=== PATIENT | female | born 1990 | race Caucasian/White ===

== ENCOUNTER 2017-08-08 08:54 | Observation (INO) | payer OTHER ==
[~2017-08-08] VITALS: Ht 167.6 cm; Wt 92.8 kg
[~2017-08-08 08:54] MED LIST: ACETAMINOPHEN 325 MG TAB PO PRN; ONDANSETRON HCL 4 MG/2 ML VIAL IVP PRN; RESP: ALBUTEROL 2.5 MG/IPRATROPIUM 0.5 MG NEB (PRN) NEB; SODIUM CHLORIDE 0.9% FLUSH 10 ML FLUSH IV FLUSH PRN
[2017-08-08 09:00] VITALS: BP 134/70; PULSE 122; RESP 18; TEMP 97.7; O2SAT 95
[2017-08-08] MEDS: SODIUM CHLORIDE 0.9% FLUSH 10 ML FLUSH IV FLUSH SCH ×2 (09:30→22:04)
[2017-08-08] MEDS: RESP: ALBUTEROL 2.5 MG/IPRATROPIUM 0.5 MG NEB (SCH) NEB ×2 (10:02→11:56)
[2017-08-08] MEDS ORDERED: predniSONE 50 MG TAB PO ONE (11:00)
[2017-08-08 12:00] VITALS: BP 135/71; PULSE 136; RESP 20; TEMP 96.9; O2SAT 94
[2017-08-08] MEDS ORDERED: SODIUM CHLOR 0.9% 1000 ML INJ 1,000 ML IV ONE (13:45)
[2017-08-08] MEDS ORDERED: LEVALBUTEROL 0.63 MG NEB PRN (14:30)
[2017-08-08] MEDS ORDERED: LORATADINE 10 MG TAB PO ONE (15:00)
[2017-08-08] MEDS ORDERED: RESP: IPRATROPIUM 0.5 MG/2.5 ML NEB NEB PRN (15:00)
--- NOTE | 2017-08-08 15:52 | HHI.HP ---
[facility] Primary Care Physician No Primary Care Physician Admission Diagnosis Acute exacerbation of asthma/COPD Diagnoses: (1) Acute respiratory insufficiency Diagnosis: Principal (2) Shortness of breath Diagnosis: Principal (3) Wheeze Diagnosis: Principal (4) Sinus tachycardia Diagnosis: Principal Chief Complaint: Shortness of breath, cough, wheeze Travel History International Travel<30 Days: No Contact w/Intl Traveler <30 Da: No History of Present Illness Written by David Rubio, acting as scribe for Dr. Richardson on 08/08/17 at 15 :37. 26-year-old female with known history of chronic tobacco use who presented to the hospital because of cough, congestion, physical therapy breathing, wheezing, chest discomfort. Patient states that her symptoms started on Friday when she started with a sore throat, sinus congestion. Then on she started developing a dry nonproductive cough, had difficulty breathing and increased wheezing, chest pain. She tried to sleep but could not so she went to the emergency department for evaluation. Patient indicates that she has been using Sudafed, Mucinex, inhaler and nebulizer at bedtime without any improvement. The patient denies any fever, chills, nausea, vomiting, diaphoresis. She did have chest discomfort mainly in the mid sternum which is palpable on palpation. Worsening when she takes a deep breath. Patient states that she has never been diagnosed with any lung disease to include asthma or COPD. She has had treatment in the past for asthma but she states that she had never been officially diagnosed. She has been using a nebulizer at bedtime for the last 2 years. She is currently a smoker, and she she does have cats. Patient had workup done in the emergency department and found to have significant sinus tachycardia, significant wheezing without improvement after nebulizer treatment and steroids. Patient was recommended observation for further management Review of Systems Ears, nose, mouth, throat: COMPLAINS OF: Throat pain, Running Nose Respiratory: COMPLAINS OF: Cough, Shortness of breath Cardiovascular: COMPLAINS OF: Chest pain Except as stated in HPI: all other systems reviewed are Neg Past Family Social History Past Medical History Chronic tobacco use Past Surgical History No previous surgeries Reported Medications Reported Meds & Active Scripts Active No Active Prescriptions or Reported Medications Allergies: Coded Allergies: No Known Allergies (Unverified , 08/08/17) Family History Reviewed and significant for mother with asthma and COPD, father's history is unknown Social History Patient continues to smoke a pack a cigarettes for the last 6 years. She drinks alcohol occasionally. Denies any illicit drugs, however drug screen was positive for cannabinoids Physical Exam Vital Signs Vital Signs Date Time Temp Pulse Resp B/P (MAP) Pulse Ox O2 Delivery O2 Flow Rate FiO2 08/08/17 12:00 96.9 136 20 135/71 (92) 94 08/08/17 09:00 97.7 122 18 134/70 (91) 95 Physical Exam GENERAL: Well-developed, well-nourished, in no acute distress. alert and orientated HEENT: Head is normocephalic without any lesions or masses noted. Facial features are symmetric. Eyes: Pupils equal round reactive to light. Extraocular muscles are intact. Conjunctivae were clear. Oropharyngeal: Pharynx without any erythema edema. Tongue is midline without deviation. Buccal mucosa is moist without any masses or lesions NECK: Supple without any masses. Trachea midline no deviation. No JVD, no bruits are appreciated CARDIAC: Regular rhythm, regular rate. S1/S2 are heard. No murmurs gallops or rubs. LUNGS: Significant bilateral wheeze noted. No, rhonchi or rales. No use of accessory muscles on inspiration or expiration. ABDOMEN: Soft, nontender. Nondistended. Bowel sounds heard in all 4 quadrants. No organomegaly or masses. Negative rebound, negative guarding EXTREMITIES: No edema, pulses are equal bilaterally. No cyanosis or clubbing NEUROLOGY: Mood and affect appear appropriate. Cranial nerves II through XII grossly intact. Muscle strength 5/5 in upper and lower extremities bilaterally. Deep tendon reflexes are 2+ in upper and lower extremities bilaterally. Laboratory Laboratory Tests Test 08/08/17 11:50 Urine Opiates Screen NEG Urine Barbiturates Screen NEG Urine Amphetamines Screen NEG Urine Benzodiazepines Screen NEG Urine Cocaine Screen NEG Urine Cannabinoids Screen POS Caprini VTE Risk Assessment Caprini VTE Risk Assessment: No/Low Risk (score <= 1) Caprini Risk Assessment Model Point Value = 1 Point Value = 2 Point Value = 3 Point Value = 5 Age 41-60 Minor surgery BMI > 25 kg/m2 Swollen legs Varicose veins or History of unexplained or recurrent spontaneous Oral contraceptives or hormone replacement Sepsis (< 1 month) Serious lung disease, including pneumonia (< 1 month) Abnormal pulmonary function Acute myocardial infarction Congestive heart failure (< 1 month) History of inflammatory bowel disease Medical patient at bed rest Age 61-74 Arthroscopic surgery Major open surgery (> 45 min) Laparoscopic surgery (> 45 min) Malignancy Confined to bed (> 72 hours) Immobilizing plaster cast Central venous access Age >= 75 History of VTE Family history of VTE Factor V Leiden Prothrombin [id number] Lupus anticoagulant Anticardiolipin antibodies Elevated serum homocysteine Heparin-induced thrombocytopenia Other congenital or acquired thrombophilia Stroke (< 1 month) Elective arthroplasty Hip, pelvis, or leg fracture Acute spinal cord injury (< 1 month) Prophylaxis Regimen Total Risk Factor Score Risk Level Prophylaxis Regimen 0-1 Low Early ambulation 2 Moderate Order ONE of the following: *Sequential Compression Device (SCD) *Heparin 5000 units SQ BID 3-4 Higher Order ONE of the following medications: *Heparin 5000 units SQ TID *Enoxaparin/Lovenox 40 mg SQ daily (WT < 150 kg, CrCl > 30 mL/min) *Enoxaparin/Lovenox 30 mg SQ daily (WT < 150 kg, CrCl > 10-29 mL/min) *Enoxaparin/Lovenox 30 mg SQ BID (WT < 150 kg, CrCl > 30 mL/min) AND/OR *Sequential Compression Device (SCD) 5 or more Highest Order ONE of the following medications: *Heparin 5000 units SQ TID (Preferred with Epidurals) *Enoxaparin/Lovenox 40 mg SQ daily (WT < 150 kg, CrCl > 30 mL/min) *Enoxaparin/Lovenox 30 mg SQ daily (WT < 150 kg, CrCl > 10-29 mL/min) *Enoxaparin/Lovenox 30 mg SQ BID (WT < 150 kg, CrCl > 30 mL/min) AND *Sequential Compression Device (SCD) Assessment and Plan Assessment and Plan //Respiratory insufficiency secondary to possible acute exacerbation of asthma/ chronic obstructive pulmonary disease - Continue O2 supplementation maintain O2 sats greater than 92% - Continue prednisone - Continue Zithromax - Start Xopenex every 6 hours while awake and every 2 hours as needed due to significant sinus tachycardia - Ipratropium bromide every 6 hours while awake and every 2 hours as needed - Start Singulair 10 mg daily - Start Claritin 10 mg daily - Patient will require pulmonary function test when not in acute phase for further evaluation and determination whether asthma versus COPD //Sinus tachycardia - Likely secondary to combination of acute reactive phase, albuterol - Changed duo nebs to Xopenex - Continue monitor heart rate //Chronic tobacco use - Patient counseled on cessation //DVT prevention - Sequential compression devices Discussed Condition With Patient, nursing staff, at bedside This note was transcribed by dante Rubio. I, Dr. Iam Richardson personally performed the history, physical exam, and medical decision making; and confirmed the accuracy of the information in the transcribed note. Authenticated by Dr. Iam Richardson on 08/09/17 at 16:42. David Rubio Aug 08, 2017 15:52 Iam Richardson MD Aug 09, 2017 16:42
[2017-08-08 16:00] VITALS: BP 135/72; PULSE 116; RESP 20; TEMP 97.8; O2SAT 94
[2017-08-08] MEDS: RESP: LEVALBUTEROL HYDROCHLORIDE 0.63 MG/3 ML NEB (SCH) NEB ×2 (16:01→21:01)
[2017-08-08] MEDS ORDERED: MONTELUKAST SODIUM 10 MG TAB PO SCH (21:00)
[2017-08-08] MEDS: RESP: IPRATROPIUM 0.5 MG/2.5 ML NEB NEB SCH (21:01)
[2017-08-08 22:30] VITALS: BP 149/93; PULSE 113; RESP 18; TEMP 98.7; O2SAT 96
[2017-08-09] VITALS: BP 153/89; PULSE 98; RESP 18; TEMP 97.7; O2SAT 97
[2017-08-09 07:30] LABS: AUTOMATED NEUTROPHIL # 4.3 TH/MM3 (1.8-7.7); BASOPHIL # 0.1 TH/MM3 (0-0.2); BASOPHIL % 0.6 % (0.0-2.0); EOSINOPHIL # 0.8 TH/MM3 (0-0.4); EOSINOPHIL % 9.2 % (0.0-4.0); HEMATOCRIT 39.9 % (35.0-46.0); HEMO FLAGS DIFF FINAL; LYMPH % 29.7 % (9.0-44.0); LYMPHOCYTE # 2.5 TH/MM3 (1.0-4.8); MEAN CELL VOLUME 89.8 FL (80.0-100.0); MEAN CORPUSCULAR HEMOGLOBIN 30.4 PG (27.0-34.0); MEAN CORPUSCULAR HGB CONC 33.9 % (32.0-36.0); MONO % 7.6 % (0.0-8.0); NEUT % 52.9 % (16.0-70.0); PLATELET COUNT 246 TH/MM3 (150-450); RED BLOOD COUNT 4.45 MIL/MM3 (4.00-5.30); RED CELL DISTRIBUTION WIDTH 12.5 % (11.6-17.2); WHITE BLOOD COUNT 8.3 TH/MM3 (4.0-11.0)
[2017-08-09 07:39] LABS: POTASSIUM 4.3 MEQ/L (3.5-5.1)
[2017-08-09] MEDS: RESP: LEVALBUTEROL HYDROCHLORIDE 0.63 MG/3 ML NEB (SCH) NEB (07:39)
[2017-08-09] MEDS: RESP: IPRATROPIUM 0.5 MG/2.5 ML NEB NEB SCH (07:39)
[2017-08-09 07:42] LABS: BICARBONATE 25.9 MEQ/L (21.0-32.0)
[2017-08-09 08:00] VITALS: BP 126/81; PULSE 89; RESP 16; TEMP 97.4; O2SAT 98
[2017-08-09] MEDS ORDERED: AZITHROMYCIN 250 MG TAB PO SCH (09:00)
[2017-08-09] MEDS ORDERED: predniSONE 50 MG TAB PO SCH (09:00)
[2017-08-09] MEDS ORDERED: LORATADINE 10 MG TAB PO SCH (09:00)
--- NOTE | 2017-08-09 09:00 | HHI.PR ---
Subjective Remarks Patient seen and examined today for follow-up on asthma/COPD exacerbation. Patient states that she is feeling much better. Patient states that she feels like she can go home. We'll need to get case management involved in order to try to arrange patient care assistance, prescription assistance if possible Objective Vitals Vital Signs Date Time Temp Pulse Resp B/P (MAP) Pulse Ox O2 Delivery O2 Flow Rate FiO2 08/09/17 08:00 97.4 89 16 126/81 (96) 98 08/09/17 00:00 97.7 98 18 153/89 (110) 97 08/08/17 22:30 98.7 113 18 149/93 (111) 96 08/08/17 16:00 97.8 116 20 135/72 (93) 94 08/08/17 12:00 96.9 136 20 135/71 (92) 94 08/08/17 09:00 97.7 122 18 134/70 (91) 95 I/O 08/08/17 08/08/17 08/08/17 08/09/17 08/09/17 08/09/17 07:00 15:00 23:00 07:00 15:00 23:00 Intake Total 1450 ml 1840 ml 400 ml Balance 1450 ml 1840 ml 400 ml Intake Oral 1450 ml 840 ml 400 ml IV Total 1000 ml # Voids 7 2 2 # Bowel Movements 1 0 Result Diagram: 08/09/1770308/09/17 0704 Objective Remarks GENERAL: Well-developed, well-nourished, in no acute distress. alert and orientated HEENT: Head is normocephalic without any lesions or masses noted. Facial features are symmetric. Eyes: Extraocular muscles are intact. Conjunctivae were clear. NECK: Supple without any masses. Trachea midline no deviation. No JVD, CARDIAC: Regular rhythm, regular rate. S1/S2 are heard. No murmurs gallops or rubs. LUNGS: Diminished breath sounds bilaterally. No wheeze, rhonchi or rales. No use of accessory muscles on inspiration or expiration. ABDOMEN: Soft, nontender. Nondistended. Bowel sounds heard in all 4 quadrants. No organomegaly or masses. Negative rebound, negative guarding EXTREMITIES: No edema, pulses are equal bilaterally. No cyanosis or clubbing NEUROLOGY: Mood and affect appear appropriate. Cranial nerves II through XII grossly intact. Moving all extremities, speech is clear Urinary Catheter: No Vascular Central Line Catheter: No A/P Assessment and Plan Respiratory insufficiency secondary to possible acute exacerbation of asthma/ chronic obstructive pulmonary disease, improved Continue O2 supplementation maintain O2 sats greater than 92% Continue prednisone Continue Zithromax Continue Xopenex every 6 hours while awake and every 2 hours as needed due to significant sinus tachycardia Continue Ipratropium bromide every 6 hours while awake and every 2 hours as needed Continue Singulair 10 mg daily Continue Claritin 10 mg daily Continue Patient will require pulmonary function test when not in acute phase for further evaluation and determination whether asthma versus COPD Sinus tachycardia, improved Likely secondary to combination of acute reactive phase, albuterol Changed duo nebs to Xopenex Continue monitor heart rate Chronic tobacco use Patient counseled on cessation DVT prevention Sequential compression devices Discharge Planning Discharge home in stable condition once arrangements made by case management Activity: Ad dina. Diet: Regular diet Medications per medication reconciliation Follow-up with primary medical doctor in one week David Rubio Aug 09, 2017 09:00
[2017-08-09] MEDS ORDERED: Ipratropium Bromide NEB (09:03)
[2017-08-09] MEDS ORDERED: AZIT250T3 PO (09:03)
[2017-08-09] MEDS ORDERED: MEDR4PAK PO (09:03)
[2017-08-09] MEDS ORDERED: MONT10TA4 PO (09:03)
[2017-08-09] MEDS ORDERED: LEVA.63I NEB (09:03)
[2017-08-09] MEDS ORDERED: CLAR10TA7 PO (09:03)
--- NOTE | 2017-08-09 09:04 | HHI.DCPOC ---
Discharge Care Plan Diagnosis: (1) Acute respiratory insufficiency (2) Shortness of breath (3) Wheeze Goals to Promote Your Health * To prevent worsening of your condition and complications * To maintain your health at the optimal level Directions to Meet Your Goals Take your medications as prescribed Follow your dietary instruction Follow activity as directed Keep your appointments as scheduled Take your immunizations and boosters as scheduled If your symptoms worsen call your PCP, if no PCP go to Urgent Care Center or Emergency Room Smoking is Dangerous to Your Health. Avoid second hand smoke Call the 24-hour hour crisis hotline for domestic abuse at David Rubio Aug 09, 2017 09:04
[2017-08-09] MEDS: SODIUM CHLORIDE 0.9% FLUSH 10 ML FLUSH IV FLUSH SCH (09:51)
[2017-08-09] MEDS ORDERED: INFLUENZA VIRUS VACCINE (QUADRIVALENT) 0.5 ML SYR IM ONE (10:00)
--- NOTE | 2017-08-09 12:37 | EKG ---
Date Performed: 08/08/2017 Time Performed: 15:49:18 PTAGE: 26 years EKG: SINUS TACHYCARDIA ABNORMAL RHYTHM ECG NO PREVIOUS TRACING DOCTOR: Kike Andrew Interpretating Date/Time 08/09/2017 12:35:32
== END 2017-08-09 13:10 | disposition home or self-care (01) ==
LOC: PHEDDLT 09:04 → PH3A 09:05
PROVIDERS: ADMIT Hospitalist; ATTEND Hospitalist
DX: R06.89 Other abnormalities of breathing (principal); R06.2 Wheezing; R00.0 Tachycardia, unspecified; F17.210 Nicotine dependence, cigarettes, uncomplicated; Z23 Encounter for immunization; Z51.81 Encounter for therapeutic drug level monitoring
CPT/HCPCS: 71010; 80048; 80053; 80307; 83880; 84484; 85025; 85379; 85652; 87804; 90471; 90686; 93005; 94640; 94664; 94667; 96372; G0378; J7030; J7512; J7614; J7644; G0008; Q2038